=== PATIENT | male | born 1995 | race African-American/Black ===

== ENCOUNTER 2017-09-06 21:03 | Emergency (ER) | payer MEDICAID ==
[~2017-09-06] VITALS: Ht 170.2 cm; Wt 60.0 kg
[2017-09-07] MEDS ORDERED: CEFTRIAXONE SODIUM 250 MG/VIAL IM ONE
[2017-09-07] MEDS ORDERED: AZITHROMYCIN 500 MG TABLET PO ONE
[2017-09-07 00:15] LABS: CLARITY URINE CLEAR (CLEAR); COLOR URINE YELLOW (YELLOW); KETONES URINE NEGATIVE (NEGATIVE); LEUKOCYTE ESTERASE URINE 1+ (NEGATIVE); NITRITE URINE NEGATIVE (NEGATIVE); OCCULT BLOOD URINE NEGATIVE (NEGATIVE); PROTEIN URINE NEGATIVE (NEGATIVE); SPECIFIC GRAVITY URINE 1.021 (1.005-1.030)
[2017-09-07 00:35] VITALS: BP 111/67
== END 2017-09-07 01:14 | disposition home or self-care (01) ==
LOC: ER 21:40
DX: N39.0 Urinary tract infection, site not specified (principal); B35.3 Tinea pedis
CPT/HCPCS: 81003; 87086; 96372; 99284; J0696